=== PATIENT | female | born 1945 | race African-American/Black ===

== ENCOUNTER 2021-12-01 20:06 | Emergency (ER) | payer MEDICARE, OTHER ==
[2021-12-01] MEDS ORDERED: Silver Nitrate Application 1 EACH ONE (20:31)
[2021-12-01 21:06] LABS: #Basophils 0.1 thou/uL (0.0-0.2); #Eosinphils 0.1 thou/uL (0.0-0.7); #Lymphocytes 2.2 thou/uL (1.20-3.40); #Monocytes 0.7 thou/uL (0.11-0.59); #Neutrophils 4.1 thou/uL (1.40-6.50); %Basophils 1.6 % (0.0-1.0); %Eosinophils 1.3 % (0.0-10.0); %Lymphocytes 30.9 % (21.0-51.0); %Monocytes 10.2 % (0.0-10.0); %Neutrophils 56.1 % (42.0-75.0); Hemoglobin 11.8 g/dL (12.0-16.0); Mean Corpuscular HGB CONC 31.1 g/dL (32.0-36.0); Mean Corpuscular Hemoglobin 28.1 pg (27.0-31.0); Mean Corpuscular Volume 90.4 fL (78.0-98.0); Mean Platelet Volume 6.7 fL (7.4-10.4); Platelet Count 303 thou/uL (130-400); RBC Distribution Width 14.4 % (11.5-14.5); Red Blood Cell (RBC) Count 4.21 mill/uL (4.20-5.40); White Blood Cell (WBC) Count 7.2 thou/uL (4.8-10.8)
[2021-12-01 21:11] LABS: INR-International Normal Ratio 0.9; Prothrombin Time 12.5 sec (12.0-14.7)
[2021-12-01 21:18] LABS: ALT (SGPT) 25 U/L (8-55); AST (SGOT) 24 U/L (5-34); Albumin 4.3 g/dL (3.4-4.8); Alkaline Phosphatase 75 U/L (40-110); Anion Gap 13 mmol/L (10-20); BUN (Urea Nitrogen) 20 mg/dL (9.8-20.1); Bilirubin, Total 0.3 mg/dL (0.2-1.2); Calc. Creatinine Clearance 0 mL/min (70-130); Calcium 9.7 mg/dL (7.8-10.44); Carbon Dioxide 25 mmol/L (23-31); Chloride 107 mmol/L (98-107); Glucose 186 mg/dL (83-110); Potassium 3.4 mmol/L (3.5-5.1); Protein, Total 7.3 g/dL (5.8-8.1); Sodium 142 mmol/L (136-145)
[2021-12-01] MEDS ORDERED: Metoprolol Tartrate 25 MG TAB PO SCH (21:45)
== END 2021-12-01 22:25 | disposition home or self-care (01) ==
LOC: BURERS 20:06
DX: I10 Essential (primary) hypertension (principal); R04.0 Epistaxis; R94.31 Abnormal electrocardiogram [ECG] [EKG]; I51.7 Cardiomegaly; Z79.84 Long term (current) use of oral hypoglycemic drugs; Z79.899 Other long term (current) drug therapy
CPT/HCPCS: 80053; 85025; 85610; 93005

== ENCOUNTER 2022-04-06 09:44 | Emergency (ER) | payer MEDICARE, OTHER ==
[2022-04-06] MEDS ORDERED: Iopamidol 370 76% 100 ML VIAL FS ONE (09:45)
[2022-04-06 11:10] LABS: #Basophils 0.1 thou/uL (0.0-0.2); #Lymphocytes 2.2 thou/uL (1.20-3.40); #Monocytes 1.2 thou/uL (0.11-0.59); #Neutrophils 9.2 thou/uL (1.40-6.50); %Basophils 0.5 % (0.0-1.0); %Eosinophils 0.1 % (0.0-10.0); %Lymphocytes 17.3 % (21.0-51.0); %Monocytes 9.4 % (0.0-10.0); %Neutrophils 72.7 % (42.0-75.0); Hemoglobin 12.5 g/dL (12.0-16.0); Mean Corpuscular HGB CONC 31.2 g/dL (32.0-36.0); Mean Corpuscular Volume 86.8 fL (78.0-98.0); Mean Platelet Volume 7.8 fL (7.4-10.4); Platelet Count 361 thou/uL (130-400); Red Blood Cell (RBC) Count 4.61 mill/uL (4.20-5.40); White Blood Cell (WBC) Count 12.6 thou/uL (4.8-10.8)
[2022-04-06 11:29] LABS: ALT (SGPT) 76 U/L (8-55); AST (SGOT) 301 U/L (5-34); Albumin 3.7 g/dL (3.4-4.8); Alkaline Phosphatase 504 U/L (40-110); Anion Gap 17 mmol/L (10-20); BUN (Urea Nitrogen) 17 mg/dL (9.8-20.1); Bilirubin, Total 1.7 mg/dL (0.2-1.2); Calc. Creatinine Clearance 0 mL/min (70-130); Calcium 9.7 mg/dL (7.8-10.44); Carbon Dioxide 25 mmol/L (23-31); Chloride 106 mmol/L (98-107); Globulin 3.8 g/dL (2.4-3.5); Potassium 3.7 mmol/L (3.5-5.1); Protein, Total 7.5 g/dL (5.8-8.1); Sodium 144 mmol/L (136-145)
[2022-04-06 11:43] LABS: Glucose 56 mg/dL (83-110)
== END 2022-04-06 14:05 | disposition home or self-care (01) ==
LOC: BURERS 09:44
DX: R00.2 Palpitations (principal); I10 Essential (primary) hypertension; K76.89 Other specified diseases of liver; R74.01 Elevation of levels of liver transaminase levels; I31.8 Other specified diseases of pericardium
CPT/HCPCS: 36415; 71045; 74177; 80053; 83880; 84484; 85025; 93005; Q9967

== ENCOUNTER 2022-04-24 20:34 | Observation (INO) | payer MEDICARE, MEDICAID ==
[2022-04-24 21:35] LABS: #Basophils 0.1 thou/uL (0.0-0.2); #Lymphocytes 1.3 thou/uL (1.20-3.40); #Monocytes 0.8 thou/uL (0.11-0.59); #Neutrophils 9.3 thou/uL (1.40-6.50); %Basophils 0.9 % (0.0-1.0); %Eosinophils 0.1 % (0.0-10.0); %Monocytes 7.2 % (0.0-10.0); %Neutrophils 80.8 % (42.0-75.0); Hemoglobin 14.2 g/dL (12.0-16.0); Mean Corpuscular HGB CONC 30.7 g/dL (32.0-36.0); Mean Corpuscular Hemoglobin 26.5 pg (27.0-31.0); Mean Corpuscular Volume 86.3 fL (78.0-98.0); Platelet Count 437 thou/uL (130-400); RBC Distribution Width 16.3 % (11.5-14.5); Red Blood Cell (RBC) Count 5.34 mill/uL (4.20-5.40); White Blood Cell (WBC) Count 11.5 thou/uL (4.8-10.8)
[2022-04-24 21:46] LABS: ALT (SGPT) 81 U/L (8-55); AST (SGOT) 635 U/L (5-34); Albumin 3.1 g/dL (3.4-4.8); Alkaline Phosphatase 591 U/L (40-110); Anion Gap 22 mmol/L (10-20); BUN (Urea Nitrogen) 45 mg/dL (9.8-20.1); Bilirubin, Total 3.2 mg/dL (0.2-1.2); Calc. Creatinine Clearance 0 mL/min (70-130); Calcium 9.6 mg/dL (7.8-10.44); Carbon Dioxide 25 mmol/L (23-31); Chloride 101 mmol/L (98-107); Estimated GFR 20; Globulin 3.9 g/dL (2.4-3.5); Glucose 65 mg/dL (83-110); Lipase 30 U/L (8-78); Sodium 144 mmol/L (136-145)
[2022-04-24] MEDS ORDERED: Ondansetron PF 4 MG/2 ML Vial ONE (22:06)
[2022-04-24] MEDS ORDERED: Mag-Al Plus 1200 MG/1200 MG/120 MG/30 ML UDCUP ONE (23:14)
[2022-04-24] MEDS ORDERED: Lidocaine Viscous Sol 2% 15 ml UD Cup ONE (23:14)
[2022-04-25] MEDS ORDERED: Ondansetron ODT 4 MG TAB SL PRN (00:15)
[2022-04-25] MEDS ORDERED: Ondansetron PF 4 MG/2 ML Vial IVP PRN (00:15)
[2022-04-25 00:19] LABS: Bilirubin Small (Negative); Blood, Urine Small (Negative); Clarity Cloudy (Clear); Glucose, Urine (Dipstick) Negative (Negative); Ketone, Urine Negative (Negative); Leukocyte Negative (Negative); Nitrite Negative (Negative); Protein, Urine (Dipstick) 100 mg/dL (Neg-Trace)
[2022-04-25 00:27] LABS: Specific Gravity, Urine 1.019 (1.002-1.036)
[2022-04-25 00:40] LABS: Bacteria/HPF 2+ HPF (None Seen); Mucous/LPF 2+ LPF (<2+); Squamous Epithelial 0-3 HPF (0-3)
[2022-04-25 01:00] LABS: SARS-CoV-2 NAA Rapid Test Not Detected (NotDetected)
[2022-04-25] MEDS: Lactated Ringer's 1,000 ML IV SCH ×2 (01:30→08:23)
[2022-04-25 02:18] VITALS: BMI 26.6
[2022-04-25] MEDS ORDERED: Acetaminophen 500 MG TAB PO SCH (05:00)
[2022-04-25 10:08] LABS: #Basophils 0.1 thou/uL (0.0-0.2); #Lymphocytes 1.4 thou/uL (1.20-3.40); #Monocytes 0.9 thou/uL (0.11-0.59); #Neutrophils 9.2 thou/uL (1.40-6.50); %Basophils 0.9 % (0.0-1.0); %Eosinophils 0.1 % (0.0-10.0); %Lymphocytes 11.6 % (21.0-51.0); %Neutrophils 79.4 % (42.0-75.0); Mean Corpuscular HGB CONC 29.9 g/dL (32.0-36.0); Mean Corpuscular Hemoglobin 26.1 pg (27.0-31.0); Mean Corpuscular Volume 87.3 fL (78.0-98.0); Mean Platelet Volume 7.5 fL (7.4-10.4); Platelet Count 385 thou/uL (130-400); RBC Distribution Width 16.7 % (11.5-14.5); Red Blood Cell (RBC) Count 4.99 mill/uL (4.20-5.40); White Blood Cell (WBC) Count 11.6 thou/uL (4.8-10.8)
[2022-04-25 10:16] LABS: Anion Gap 20 mmol/L (10-20); BUN (Urea Nitrogen) 52 mg/dL (9.8-20.1); Calc. Creatinine Clearance 27 mL/min (70-130); Calcium 9.2 mg/dL (7.8-10.44); Carbon Dioxide 26 mmol/L (23-31); Chloride 101 mmol/L (98-107); Estimated GFR 22; Sodium 143 mmol/L (136-145)
[2022-04-25 10:23] LABS: Glucose 49 mg/dL (83-110)
[2022-04-25] MEDS ORDERED: Acetaminophen 500 MG TAB PO PRN (11:00)
[2022-04-25] MEDS ORDERED: Dextrose 5 % And 0.9 % NaCl 1,000 ML IV SCH (11:15)
[2022-04-25 16:24] VITALS: BP 152/90; TEMP 98.1
== END 2022-04-25 16:15 | disposition short-term general hospital (02) ==
LOC: BURERS 20:34 → BURMED 23:23
PROVIDERS: ADMIT Family Medicine; ATTEND Family Medicine
DX: E86.0 Dehydration (principal); R53.1 Weakness; R17 Unspecified jaundice; R18.8 Other ascites; N17.9 Acute kidney failure, unspecified; F17.290 Nicotine dependence, other tobacco product, uncomplicated; K57.30 Diverticulosis of large intestine without perforation or abscess without bleeding; N28.1 Cyst of kidney, acquired; C50.919 Malignant neoplasm of unspecified site of unspecified female breast; C78.7 Secondary malignant neoplasm of liver and intrahepatic bile duct; Z79.02 Long term (current) use of antithrombotics/antiplatelets; Z79.84 Long term (current) use of oral hypoglycemic drugs; Z79.899 Other long term (current) drug therapy; Z95.5 Presence of coronary angioplasty implant and graft; Z20.822 Contact with and (suspected) exposure to COVID-19
CPT/HCPCS: 36415; 36416; 71045; 74176; 80048; 80053; 81003; 81015; 83605; 83690; 85025; 87086; 93005; 96361; 96374; G0378; J2405; J7042; J7120; U0002